=== PATIENT | female | born 1980 | race Hispanic/Latino ===

== ENCOUNTER → 2025-06-06 | Outpatient (CLI) | payer BC ==
[~2025-06-06] MED LIST: IOHEXOL-350 75 ML VIAL IV ONE
--- NOTE | 2025-06-07 16:10 | HMCIMG ---
EXAM: COMPUTED TOMOGRAPHY OF THE ABDOMEN AND PELVIS WITH INTRAVENOUS AND ORAL CONTRAST Technique: Multidetector computed tomography of the abdomen and pelvis was performed following administration of oral contrast and an intravenous iodinated contrast agent, with images acquired in the portal venous phase. Axial images were obtained with coronal and sagittal reformations. Radiation dose reduction strategies were applied using the [id number]-achievable principle, including automatic exposure control and patient size???adapted parameters. Clinical Information: History of benign neoplasm of the sigmoid colon. Findings: Visualized lung bases show no pleural effusion, lobar collapse, or focal consolidation. Liver is normal in size, morphology, and attenuation with smooth margins. No focal hepatic lesion or calcification is identified. No intrahepatic or extrahepatic biliary ductal dilatation is present; rodolfo hepatis is unremarkable. Portal vein, hepatic veins, and inferior vena cava demonstrate normal caliber. Post-cholecystectomy status is noted. Pancreas demonstrates normal size and attenuation without ductal dilatation, peripancreatic fluid, or fat stranding. Spleen demonstrates normal size and homogeneous attenuation without focal lesion. Kidneys are normal in size, position, and attenuation bilaterally without focal mass, calculus, or hydronephrosis. Stomach is distended and unremarkable; gastroesophageal junction is within expected limits; pylorus and duodenum appear normal. Jejunal and ileal loops show normal caliber and wall thickness with normal enhancement; mesenteric fat and omentum are unremarkable. Appendix is visualized without inflammatory changes; no features of acute appendicitis. Colon demonstrates fecal loading in the sigmoid segment. Rectum shows mild circumferential mural thickening measuring up to approximately 1.2 centimeters in maximal thickness. No free intraperitoneal fluid or free intraperitoneal air is identified. No pathologic lymphadenopathy is identified in the abdomen or pelvis. Adrenal glands are normal in morphology and attenuation bilaterally. Abdominal aorta and inferior vena cava are normal in course and caliber. Urinary bladder demonstrates normal wall thickness and contour. Uterus is appropriate in size for age with a right fundal intramural leiomyoma measuring approximately 5 centimeters. Cervix appears bulky on computed tomography, which is limited for cervical characterization. Visualized osseous structures and extra-abdominal/paraspinal soft tissues are unremarkable. Impression: * Mild circumferential rectal wall thickening measuring up to approximately 1.2 centimeters. Correlate for symptoms of proctitis; in the appropriate clinical context, consider neoplastic or post-treatment changes. * Fecal loading in the sigmoid colon; no discrete sigmoid mass identified on this examination within the limits of computed tomography. * Post-cholecystectomy status; otherwise unremarkable solid abdominal organs with no biliary dilatation. * No hydronephrosis, bowel obstruction, free fluid, or pathologic lymphadenopathy. * Uterine leiomyoma at the right fundus measuring approximately 5 centimeters; cervix appears bulky on computed tomography. /[place]
== END | disposition home or self-care (01) ==
LOC: RAH 08:11
PROVIDERS: ATTEND Internal Medicine Gastroenterology
DX: C50.919 Malignant neoplasm of unspecified site of unspecified female breast (principal); D12.5 Benign neoplasm of sigmoid colon; D25.1 Intramural leiomyoma of uterus; Z90.49 Acquired absence of other specified parts of digestive tract; Z86.0101 Personal history of adenomatous and serrated colon polyps
CPT/HCPCS: 74177; Q9967